=== PATIENT | female | born 1995 | race Caucasian/White ===

== ENCOUNTER 2017-11-14 18:57 | Emergency (ER) | payer OTHER ==
[2017-11-14] MEDS ORDERED: Bacitracin Zinc 1 Packet ONE (19:36)
== END 2017-11-14 20:05 | disposition home or self-care (01) ==
LOC: SCSER 18:57
DX: S41.151A Open bite of right upper arm, initial encounter (principal); F41.9 Anxiety disorder, unspecified; Z79.899 Other long term (current) drug therapy; W54.0XXA Bitten by dog, initial encounter
CPT/HCPCS: 99283